=== PATIENT | male | born 1955 | race American Indian/Alaskan Native ===

== ENCOUNTER 2019-01-14 08:49 | Day surgery (SDC) | payer OTHER ==
[~2019-01-14 08:49] MED LIST: NACL 0.9% 1000 ML 1,000 ML IV SCH
--- NOTE | 2019-01-14 09:29 | Anesthesia Day of Surgery ---
Anesthesia Day of Surgery - Day of Surgery Patient Examined: Yes Patient H&P Reviewed: Yes Patient is NPO: Yes
--- NOTE | 2019-01-14 09:31 | Anesthesia Consultation ---
Anesthesia Consult and Med Hx Date of service: 01/14/19 - Airway Anesthetic Teeth Evaluation: Chipped ROM Head & Neck: Adequate Mental/Hyoid Distance: Adequate Mallampati Class: Class II Intubation Access Assessment: Good - Pre-Operative Health Status ASA Pre-Surgery Classification: ASA2 Proposed Anesthetic Plan: MAC - Pulmonary Hx Smoking: Yes - Cardiovascular System Hx Hypertension: No - Central Nervous System Hx Neuromuscular Disorder: Yes (Arthritis) Hx Psychiatric Problems: Yes (Depression)
[2019-01-14] MEDS ORDERED: DIPRIVAN 10 MG/ML IV ONE ×2 (10:13)
--- NOTE | 2019-01-14 11:16 | History and Physical Report ---
HISTORY OF PRESENT ILLNESS: This is a 63-year-old -Japanese gentleman with an underlying history of depression, arthritis and low back pain. He has a remote history of hip replacement and earlier this year, he was in the hospital with pneumonia and subsequent to that he has been losing weight. He has lost close to 30 pounds and because of his weight loss and inability to gain it, he has been sent here for evaluation for an EGD and a colonoscopy to make sure that he does not have any underlying GI pathology accounting for his weight loss. ALLERGIES: He has no known allergies. SOCIAL HISTORY: Denies history of smoking or alcohol use. No cardiac issues. No flu shots. PHYSICAL EXAMINATION: VITAL SIGNS: He is afebrile, blood pressure 131/80, pulse 59, height is 5 feet 9 inches, weight is 147 pounds. HEENT: Shows no JVD. LUNGS: Clear to auscultation. CARDIOVASCULAR: Normal. ABDOMEN: Soft. Bowel sounds present. NEUROLOGIC: He is alert and oriented. ASSESSMENT: Colon polyp screening, history of significant weight loss, remote history of hip replacement, and depression. PLAN: To do an EGD and a colonoscopy as part of evaluation of his weight loss to be done at [facility] on 01/14/2019. The patient has used the [facility]. JOB# [id number] ROGELIO/NTS
--- NOTE | 2019-01-14 11:36 | Procedure Note ---
Date of procedure: 01/14/19 Pre-op diagnosis: Weight Loss/Colon Polyp Screening Post-op diagnosis: other (Mild to Moderate Distal Erosive Esophagitis/Gastritis/ No Colon Polyps noted/Solitary,Cecal Diverticuli/Minor,Internal Hemorrhoid) Procedure: EGD with Biopsy/Colonoscopy Anesthesia: [facility] Surgeon: BRANDO BILL Estimated blood loss: minimal Pathology: list Specimen disposition: to lab Condition: stable Disposition: same day (Treat with PPI and encourage fiber intake. Avoid aspirin and NSAID for 4 days; otherwise resume home medication. CT scan of the abdomen and pelvis as an Outpatient. Follow up in 1 to 2 weeks ([phone]).)
--- NOTE | 2019-01-14 11:49 | Operative Report ---
PROCEDURE: Colonoscopy as part of colon polyp screening and history of weight loss. INDICATIONS: A 63-year-old -[place] gentleman who has been losing weight. He had a bout of pneumonia earlier this year. Also, has an underlying history of depression. EGD showed some mild to moderate erosive esophagitis and gastritis, but findings not significant enough to account for the patient's weight loss. DESCRIPTION OF PROCEDURE: Colonoscopy was done after getting informed consent. Initial rectal exam was unremarkable. Instrument was passed through the rectum onto the cecum, which was identified by ileocecal valve and appendiceal orifice. Visualization was fair. There was a solitary diverticula noted in the cecum, there was no additional pathology noted on the retroverted view of the cecum. Besides a solitary cecal diverticula, no additional pathology was noted in the proximal colon, transverse colon, descending colon, sigmoid and the rectum showed some minor internal hemorrhoids. There were no colon polyps noted and no findings that would account for the patient's weight loss. ASSESSMENT: History of weight loss, colon polyp screening, no colon polyps noted, solitary cecal diverticulum, minor internal hemorrhoid. Visualization was fair. There was no bleeding associated with the colonoscopy. No complications associated with the procedure. Plan is to encourage the patient to take fiber supplements. The patient will be treated with PPI because of the EGD findings of dila-rc-saownoxi erosive esophagitis, gastritis. These findings would not account for the patient's weight loss. The patient may have a CT scan of the abdomen and pelvis done as an outpatient and possibly repeat chest x-ray to be done as an outpatient. Procedure was done in the GI lab with assistance of the GI lab team, which included [facility] and [facility] including Shankar sorenson and with assistance of anesthesia. JOB# [id number] ROGELIO/CALDERON
[2019-01-14 12:03] VITALS: BP 105/75
--- NOTE | 2019-01-14 12:17 | Post Anesthesia Evaluation ---
- Post Anesthesia Evaluation Patient Participated: Yes Airway Patent: Yes Stable Respiratory Function: Yes Nausea/Vomiting: No Temp > 96.8F: Yes Pain Manageable: Yes Adequeate Hydration: Yes Anesthesia Complications: No Block Receding Appropriately: Not Applicable Patient on Ventilator: No
--- NOTE | 2019-01-14 17:11 | Operative Report ---
PROCEDURE: EGD with biopsy. INDICATIONS: A 63-year-old -[place]ag[place] gentleman with an underlying history of depression and arthritis who had pneumonia earlier this year and has subsequently lost weight which he has not been able to regain. EGD was done to make sure there was not any significant upper GI pathology present that would account for his weight loss. DESCRIPTION OF PROCEDURE: The procedure was done after getting informed consent with MAC anesthesia. Instrument was passed through the hypopharynx into the esophagus, which showed some mild to moderate distal erosive esophagitis. Stomach showed gastritis, but no ulcers were noted in the straight or the retroverted view. Biopsy was done from the gastric antrum, gastric body and angular incisura to rule out for H. pylori. Biopsy was also done from the distal esophagus to rule out for erosive esophagitis. The pylorus was patent. The duodenum in the first and second portion appeared normal. There was minimal bleeding from the biopsy sites, but no significant finding that would account for the patient's weight loss. ASSESSMENT: History of weight loss, mild to moderate erosive esophagitis, gastritis. PLAN: Plan is to treat the patient with PPI and do a colonoscopy for further assessment of the patient's weight loss. It is like pulling teeth to do a colonoscopy. Colonoscopy is to be done for further assessment. Avoid aspirin and aspirin-related products for the next few days if possible. CT scan of the abdomen and pelvis if the colonoscopy is unremarkable. Procedure was done in the GI lab with the assistance of the GI lab team which included Keisha CURRAN and Shankar sorenson in assistance of Anesthesia. JOB# [id number] ROGELIO/CALDERON FLORES
== END 2019-01-14 08:50 | disposition home or self-care (01) ==
LOC: GIO 08:49
DX: R63.4 Abnormal weight loss (principal); K20.8 Other esophagitis; K57.30 Diverticulosis of large intestine without perforation or abscess without bleeding; K64.8 Other hemorrhoids; F32.9 Major depressive disorder, single episode, unspecified; M19.90 Unspecified osteoarthritis, unspecified site; F17.210 Nicotine dependence, cigarettes, uncomplicated; Z79.899 Other long term (current) drug therapy; Z96.649 Presence of unspecified artificial hip joint
CPT/HCPCS: 43239; 45378; 88305; 88342; J2704; J7030